=== PATIENT | male | born 1975 | race Caucasian/White ===

== ENCOUNTER 2023-08-05 01:19 | Day surgery (SDC) | payer BC, SELFPAY ==
[2023-07-22 10:43] VITALS: BMI 23.1
[2023-08-05 10:14] VITALS: BP 102/64; PULSE 71; RESP 18; TEMP 36.4; O2SAT 100
[2023-08-05] MEDS: LACTATED RINGERS 1,000 ML 150 ML IV CONT (10:30)
--- NOTE | 2023-08-05 10:51 | P.HP_ITS ---
History of Present Illness History of Present Illness Consent: Risks, benefits, and alternatives have been discussed and questions answered. Patient agrees to proceed with procedure. Chief complaint: neoplasm screening Narrative: Sly Milner is a 48 year old male Presents for screening colonoscopy. Patient has current weight appetite bowel movements are normal. He denies abdominal pain. He has had no bleeding. Family history noncontributory. In th e past has been felt to have irritable bowel syndrome. Patient presents today for neoplasia screening colonoscopy. Review of Systems Review of Systems: Review of systems noncontributory. [facility] Social History Social History Smoking status: Never smoker Alcohol intake: current Alcohol use details: rarely Substance use: current Substance use type: does not use Living arrangements: with family Spiritual care concerns: No Meds Home Medications and Allergies Home Medications Medication Instructions Recorded Confirmed Type sodium,potassium,mag sulfates 17.5 See Rx Instructions PO .COMPLEX 06/20/23 Rx gram-3.13 gram-1.6 gram oral soln #354 mL (Suprep Bowel Prep Kit) thyroid (pork) 60 mg tablet 60 mg PO DAILY 07/22/23 08/05/23 History ([place] Thyroid) Allergies Allergy/AdvReac Type Severity Reaction Status Date / Time No Known Allergies Allergy Mild Verified 08/05/23 10:12 Vital Signs Vital Signs - 24 hr 08/05/23 10:14 Temperature 97.5 F L Pulse Rate 71 Respiratory Rate 18 Blood Pressure 102/64 Pulse Oximetry 100 Oxygen Delivery Room Air Exam Narrative: Physical exam reveals patient to be alert. Vital signs stable. HEENT exam is unremarkable. Patient is anicteric. Lungs are clear to auscultation and percussion. Heart is without murmur or extra sounds. Abdomen bowel sounds are present soft nontender with no organomegaly. Digital external rectal exam is normal. Assessment and Plan Assessment and plan (1) Encounter for screening colonoscopy: Code(s): Z12.11 - Encounter for screening for malignant neoplasm of colon Status: Acute Assessment and Plan: Patient presents today for screening colonoscopy. He appears to be at average risk for colon polyps. Further recommendations may be given after endoscopy.
--- NOTE | 2023-08-05 11:03 | WPDANESEPPF ---
Anes - Initial Pre Proc Eval Procedure: Operation Date: 08/05/23 11:30 Proposed Procedures p Screening Colonoscopy - Mat Reyes MD Date/Time: 08/05/23 11:03 Surgeon: Mat Reyes MD Pre Op Diagnosis: neoplasm screening Patient Data Age: 48 Gender: M Height: 1.73 m Weight: 66.3 kg Last Vital Signs Temp 97.5 F L 08/05/23 10:14 Pulse 71 08/05/23 10:14 Resp 18 08/05/23 10:14 BP 102/64 08/05/23 10:14 Pulse Ox 100 08/05/23 10:14 O2 Del Method Room Air 08/05/23 10:14 Allergies Allergy/AdvReac Type Severity Reaction Status Date / Time No Known Allergies Allergy Mild Verified 08/05/23 10:12 Home Medications Medication Instructions Recorded Confirmed Type sodium,potassium,mag sulfates 17.5 See Rx Instructions PO .COMPLEX 06/20/23 Rx gram-3.13 gram-1.6 gram oral soln #354 mL (Suprep Bowel Prep Kit) thyroid (pork) 60 mg tablet 60 mg PO DAILY 07/22/23 08/05/23 History ([place] Thyroid) Patient hx anesthesia problems: none Family hx anesthesia problems: none Results Review: All pre-operative results and documents have been reviewed as part of the pre-operative evaluation. [facility] Social History Social History Smoking status: Never smoker Alcohol intake: current Alcohol use details: rarely Substance use: current Substance use type: does not use Living arrangements: with family Spiritual care concerns: No Anes - Eval Final PreProcedure Day of Procedure 08/05/23 11:03 Patient weight: normal Heart: regular rate and rhythm Lungs: clear to auscultation Airway: Mallampati scale class II Neurological: alert and oriented Last oral intake: >/= 8 hours ASA classification: II Emergent: no Anesthetic plan: proceed Anesthesia type and monitoring: general GIVS and standard monitoring Results Review: All pre-operative results and documents have been reviewed as part of the pre-operative evaluation. Informed Consent: The patient's anesthetic plan and its attendant risks and benefits were discussed with the patient/family/POA. Questions were solicited and answers provided to the satisfaction of the patient/family/POA.
[2023-08-05 11:39] VITALS: BP 89/53; PULSE 78; RESP 23; O2SAT 97
[2023-08-05 11:49] VITALS: BP 95/56; PULSE 68; RESP 17; O2SAT 100
[2023-08-05 11:59] VITALS: BP 99/69; PULSE 72; RESP 23; O2SAT 100
== END 2023-08-05 12:11 | disposition home or self-care (01) ==
PROVIDERS: Visit Provider Internal Medicine Gastroenterology
PROC: 0DJD8ZZ Inspection of Lower Intestinal Tract, Via Natural or Artificial Opening Endoscopic (ICD-10-PCS; CPT 45378; principal; 2023-08-05 11:30)
DX: Z12.11 Encounter for screening for malignant neoplasm of colon (principal); K64.4 Residual hemorrhoidal skin tags
CPT/HCPCS: 45378; J2704; J7120

== ENCOUNTER 2025-04-30 09:18 | Outpatient (CLI) | payer BC, SELFPAY ==
--- NOTE | ~2025-04-30 | US_ITS ---
Abdominal Sonogram: Real-time sonographic imaging of the abdomen was performed. Clinical History: Bloating Findings: The liver appears normal with no evidence of mass lesion or bile duct dilatation. Main por donna vein demonstrates normal direction of flow. The spleen is normal in size without evidence of foca l lesion. The gallbladder is well distended, and appears normal with no evidence of gallstone or wal l thickening. The common bile duct measures 3 mm. The visualized pancreas, aorta, and IVC are unrema rkable. The right kidney measures 9.3 cm in length and the left kidney measures 9.5 cm. There is no hydronephrosis or renal calculus. Impression: Unremarkable abdominal ultrasound. Reviewed, dictated and finalized at location . Impression: Unremarkable abdominal ultrasound.
--- NOTE | ~2025-04-30 | US_ITS ---
EXAMINATION: US soft tissue abdomen DATE: 04/30/2025 09:45 INDICATION: Abdominal and pelvic swelling, mass or lump TECHNIQUE: Multiple grayscale and Doppler ultrasound images of the abdomen in the right infraumbilica l region of concern were obtained. COMPARISON: None FINDINGS/IMPRESSION: Normal appearance to the subcutaneous fat, abdominal wall and underlying bowels in the region of conc xi with no abnormal masses, fluid collections or evident hernia. Reviewed, dictated and finalized at location A.
== END 2025-04-30 09:19 | disposition home or self-care (01) ==
LOC: GOSHIMG 09:19
DX: R19.00 Intra-abdominal and pelvic swelling, mass and lump, unspecified site (principal)
CPT/HCPCS: 76700; 76705